=== PATIENT | female | born 1990 | race Caucasian/White ===

== ENCOUNTER 2017-07-24 10:28 | Emergency (ER) | payer SELFPAY ==
[2017-07-24 10:47] VITALS: O2SAT 97
--- NOTE | 2017-07-24 10:53 | ED.PDOC ---
History of Present Illness - General Chief Complaint: Skin/Abrasion/Tear Stated Complaint: skin abscess Time Seen by Provider: 07/24/17 10:39 Source: patient Exam Limitations: no limitations - History of Present Illness Initial Comments: The patient is a 27-year-old female presenting to the emergency room secondary to recurrent bilateral axillary folliculitis with persistent drainage from the left axilla. She was placed on Bactrim approximately 3 weeks ago but has continued to have drainage from theleft axilla. no fevers. She is not on control. Timing/Duration: unsure Severity: mild Improving Factors: nothing Worsening Factors: nothing Associated Symptoms: denies symptoms Allergies/Adverse Reactions: Allergies Amoxicillin Allergy (Severe, Verified 07/24/17 10:48) Hives Burning skin, itching Iodine Allergy (Verified 07/24/17 10:48) Rash iv contrast Adverse Reaction (Severe, Uncoded 07/24/17 10:48) Home Medications: Ambulatory Orders Cephalexin [Keflex] 500 mg PO TID #20 cap 01/21/16 Potassium Chloride [K-Tab] 10 meq PO DAILY #5 tab 01/21/16 Promethazine Tab [Phenergan Tablet] 25 mg PO Q4HR PRN #10 tab 01/21/16 Clindamycin HCl 300 mg PO Q8H #60 cap 07/24/17 Review of Systems - Review of Systems Constitutional: States: no symptoms reported EENTM: States: no symptoms reported Respiratory: States: no symptoms reported Cardiology: States: no symptoms reported Gastrointestinal/Abdominal: States: no symptoms reported Genitourinary: States: no symptoms reported Musculoskeletal: States: no symptoms reported Skin: States: see HPI Neurological: States: no symptoms reported Past Medical History (General) - Patient Medical History Hx Seizures: No Hx Stroke: No Hx Dementia: No Hx Asthma: No Hx of COPD: No Hx Cardiac Disorders: No Hx Congestive Heart Failure: No Hx Pacemaker: No Hx Hypertension: No Hx Thyroid Disease: No Hx Diabetes: No Hx Gastroesophageal Reflux: No Hx Renal Disease: Yes - frequent kidney infections Hx Cancer: No Hx of HIV: No Hx Hepatitis C: No Hx MRSA: No Surgical History: no surgical history - Vaccination History Hx Tetanus, Diphtheria Vaccination: No Hx Influenza Vaccination: No Hx Pneumococcal Vaccination: No - Social History Hx Tobacco Use: Yes Hx Chewing Tobacco Use: No Hx Alcohol Use: No Hx Substance Use: No Hx Substance Use Treatment: No Hx Depression: Yes Hx Physical Abuse: No Hx Emotional Abuse: No Hx Suspected Abuse: No - Female History Patient is a Female of Child Bearing Age (10 -59 yrs old): Yes Hx Last Menstrual Period: 10/26/15 Patient : No Expected Date of Delivery:: 12/04/12 Family Medical History - Family History Mother Family History: No Known Living Status: Still Living Physical Exam - Physical Exam General Appearance: Alert, Comfortable, No apparent distress Eye Exam: bilateral normal Ears, Nose, Throat: hearing grossly normal Neck: non-tender, full range of motion, supple Respiratory: no respiratory distress, no accessory muscle use Cardiovascular/Chest: normal peripheral pulses, no edema Peripheral Pulses: radial,right: 2+, radial,left: 2+ Rectal Exam: deferred Back Exam: normal inspection Extremity: normal range of motion, no pedal edema, normal capillary refill, other - see history of present illness Neurologic: alert, normal mood/affect, oriented x 3 Skin Exam: normal color - see history of present illness for the axilla. No obvious abscess. There is drainage of a mild yellow fluid from the left axilla. Minimal erythema however. Comments: Vital Signs - 8 hr 07/24/17 10:38 Temperature 98.9 F Pulse Rate [ 100 H pulse ox] Respiratory 20 Rate Blood Pressure 150/95 [Right Arm] O2 Sat by Pulse 97 Oximetry Progress - Progress Progress: 07/24/17 10:53 the patient is a 27-year-old female presenting with recurrence of bilateral axillary folliculitis or hiradenitis. The patient will be changed to clindamycin empirically as a trial. Drainage from the left axillary tract has been cultured and will need follow-up in approximately one week. It is possible the patient may have simply developed a chronic persistent left axillary drainage tract that may yet require surgical excision if antibiotics fail. This has been explained to her. No evidence of sepsis or gross abscess formation at this time. She can take the clindamycin with food. Follow-up with primary care doctor in 1 week for culture results. ER warnings were given. Departure - Departure Clinical Impression: Hidradenitis axillaris Disposition: Discharge to Home or Self Care Condition: Fair Departure Forms: ED Discharge - Pt. Copy, Patient Portal Self Enrollment Instructions: DI for Wound Infection Diet: regular diet Activity: increase activity as tolerated Referrals: Cameron Hahn MD [Primary Care Provider] - 1-2 Weeks Prescriptions: Clindamycin HCl 300 mg PO Q8H #60 cap Home Medications: Ambulatory Orders Cephalexin [Keflex] 500 mg PO TID #20 cap 01/21/16 Potassium Chloride [K-Tab] 10 meq PO DAILY #5 tab 01/21/16 Promethazine Tab [Phenergan Tablet] 25 mg PO Q4HR PRN #10 tab 01/21/16 Clindamycin HCl 300 mg PO Q8H #60 cap 07/24/17 Additional Instructions: the patient is a 27-year-old female presenting with recurrence of bilateral axillary folliculitis or hiradenitis. The patient will be changed to clindamycin empirically as a trial. Drainage from the left axillary tract has been cultured and will need follow-up in approximately one week. It is possible the patient may have simply developed a chronic persistent left axillary drainage tract that may yet require surgical excision if antibiotics fail. This has been explained to her. No evidence of sepsis or gross abscess formation at this time. She can take the clindamycin with food. Follow-up with primary care doctor in 1 week for culture results. ER warnings were given.
[2017-07-24 12:13] VITALS: BP 105/69; TEMP 97.2
== END 2017-07-24 12:00 | disposition home or self-care (01) ==
LOC: ER 10:28
DX: L73.2 Hidradenitis suppurativa (principal); Z87.891 Personal history of nicotine dependence; Z88.3 Allergy status to other anti-infective agents; Z88.8 Allergy status to other drugs, medicaments and biological substances; Z91.041 Radiographic dye allergy status

== ENCOUNTER 2017-12-09 23:49 | Emergency (ER) | payer SELFPAY ==
[2017-12-10 00:11] VITALS: BP 126/84; TEMP 99.4; O2SAT 96
--- NOTE | 2017-12-10 00:28 | ED.PDOC ---
History of Present Illness - General Chief Complaint: GI Problem Stated Complaint: possible pinworm infestation Time Seen by Provider: 12/10/17 00:24 Source: patient Exam Limitations: no limitations - History of Present Illness Initial Comments: he patient is a 27-year-old mother of a 5-year-old male that has a current pinworm infection. The mother is being seen for treatment as well to prevent any reinfection issues. She is not symptomatic. It is unknown if she is actually infected. Timing/Duration: unsure Improving Factors: nothing Worsening Factors: nothing Associated Symptoms: denies symptoms Allergies/Adverse Reactions: Allergies Amoxicillin Allergy (Severe, Verified 07/24/17 10:48) Hives Burning skin, itching Iodine Allergy (Verified 07/24/17 10:48) Rash iv contrast Adverse Reaction (Severe, Uncoded 07/24/17 10:48) Home Medications: Ambulatory Orders Cephalexin [Keflex] 500 mg PO TID #20 cap 01/21/16 Potassium Chloride [K-Tab] 10 meq PO DAILY #5 tab 01/21/16 Promethazine Tab [Phenergan Tablet] 25 mg PO Q4HR PRN #10 tab 01/21/16 Clindamycin HCl 300 mg PO Q8H #60 cap 07/24/17 Review of Systems - Review of Systems Constitutional: States: no symptoms reported EENTM: States: no symptoms reported Respiratory: States: no symptoms reported Cardiology: States: no symptoms reported Gastrointestinal/Abdominal: States: no symptoms reported Genitourinary: States: no symptoms reported Musculoskeletal: States: no symptoms reported Skin: States: no symptoms reported Neurological: States: no symptoms reported Endocrine: States: no symptoms reported All other Systems: No Change from Baseline Past Medical History (General) - Patient Medical History Hx Seizures: No Hx Stroke: No Hx Dementia: No Hx Asthma: No Hx of COPD: No Hx Cardiac Disorders: No Hx Congestive Heart Failure: No Hx Pacemaker: No Hx Hypertension: No Hx Thyroid Disease: Yes Hx Diabetes: No Hx Gastroesophageal Reflux: No Hx Renal Disease: Yes - frequent kidney infections Hx Cancer: No Hx of HIV: No Hx Hepatitis C: No Hx MRSA: No Surgical History: no surgical history - Vaccination History Hx Tetanus, Diphtheria Vaccination: No Hx Influenza Vaccination: No Hx Pneumococcal Vaccination: No Immunizations Up to Date: No - Social History Hx Tobacco Use: Yes Hx Chewing Tobacco Use: No Hx Alcohol Use: No Hx Substance Use: No Hx Substance Use Treatment: No Hx Depression: Yes Hx Physical Abuse: No Hx Emotional Abuse: No Hx Suspected Abuse: No - Female History Patient is a Female of Child Bearing Age (10 -59 yrs old): Yes Hx Last Menstrual Period: 10/26/15 Patient : No Expected Date of Delivery:: 12/04/12 Family Medical History - Family History Mother Family History: No Known Living Status: Still Living Physical Exam - Physical Exam General Appearance: Alert, Comfortable, No apparent distress Eye Exam: bilateral normal Ears, Nose, Throat: hearing grossly normal Neck: full range of motion Respiratory: no respiratory distress, no accessory muscle use Cardiovascular/Chest: no edema Gastrointestinal/Abdominal: other - ildly obese Rectal Exam: deferred Extremity: normal capillary refill Neurologic: jr. systems administrator II-XII nml as tested, alert, normal mood/affect, oriented x 3 Skin Exam: normal color Comments: Vital Signs - 24 hr 12/10/17 00:01 Temperature 99.4 F Pulse Rate [ 104 H left] Respiratory 18 Rate Blood Pressure 126/84 [left] O2 Sat by Pulse 96 Oximetry Progress - Progress Progress: 12/10/17 00:26 the patient is the mother of a 5-year-old that has a current pinworm infection. She is being treated as a household contact. She will be given a prescription for 1 dose of albendazole to be taken tomorrow after she gets the prescription filled and another dose in 2 weeks. Linens need to be washed in high heat. Handwashing needs to be maintained. Other household contacts need to contact their primary care doctor for empiric treatment. ER warnings were given. Departure - Departure Clinical Impression: Family history of pinworm infection Disposition: Discharge to Home or Self Care Condition: Fair Departure Forms: ED Discharge - Pt. Copy, Patient Portal Self Enrollment Instructions: DI for Pinworm Diet: regular diet Activity: increase activity as tolerated Referrals: Cameron Hahn MD [Primary Care Provider] - 1-2 Weeks Home Medications: Ambulatory Orders Cephalexin [Keflex] 500 mg PO TID #20 cap 01/21/16 Potassium Chloride [K-Tab] 10 meq PO DAILY #5 tab 01/21/16 Promethazine Tab [Phenergan Tablet] 25 mg PO Q4HR PRN #10 tab 01/21/16 Clindamycin HCl 300 mg PO Q8H #60 cap 07/24/17 Additional Instructions: the patient is the mother of a 5-year-old that has a current pinworm infection. She is being treated as a household contact. She will be given a prescription for 1 dose of albendazole to be taken tomorrow after she gets the prescription filled and another dose in 2 weeks. Linens need to be washed in high heat. Handwashing needs to be maintained. Other household contacts need to contact their primary care doctor for empiric treatment. ER warnings were given.
== END 2017-12-10 00:36 | disposition home or self-care (01) ==
LOC: ER 23:49
DX: Z20.7 Contact with and (suspected) exposure to pediculosis, acariasis and other infestations (principal)

== ENCOUNTER 2018-03-08 22:16 | Emergency (ER) | payer SELFPAY ==
--- NOTE | 2018-03-08 22:49 | ED.PDOC ---
History of Present Illness - General Chief Complaint: Upper Extremity Injury Stated Complaint: shoulder pain Time Seen by Provider: 03/08/18 22:42 Source: patient Exam Limitations: no limitations Additional Information: WAS RIDING WATERCRAFT WHEN SHE FELL OFF THE BACK HOLDING ON. C/O PAIN TO R SHOULDER. - History of Present Illness Occurred: other - 2 DAYS AGO. Pain - Upper Extremity: moderate: Shoulder, right Improving Factors: nothing Worsening Factors: movement Allergies/Adverse Reactions: Allergies Amoxicillin Allergy (Severe, Verified 07/24/17 10:48) Hives Burning skin, itching Iodine Allergy (Verified 07/24/17 10:48) Rash iv contrast Adverse Reaction (Severe, Uncoded 07/24/17 10:48) Home Medications: Ambulatory Orders Cephalexin [Keflex] 500 mg PO TID #20 cap 01/21/16 Potassium Chloride [K-Tab] 10 meq PO DAILY #5 tab 01/21/16 Promethazine Tab [Phenergan Tablet] 25 mg PO Q4HR PRN #10 tab 01/21/16 Clindamycin HCl 300 mg PO Q8H #60 cap 07/24/17 Review of Systems - Review of Systems Constitutional: Denies: chills, fever Respiratory: Denies: cough, short of breath Cardiology: Denies: chest pain, palpitations Musculoskeletal: States: joint pain. Denies: back pain, joint swelling, neck pain Skin: States: no symptoms reported Neurological: Denies: numbness, weakness Endocrine: States: no symptoms reported Hematologic/Lymphatic: States: no symptoms reported Past Medical History (General) - Patient Medical History Hx Seizures: No Hx Stroke: No Hx Dementia: No Hx Asthma: No Hx of COPD: No Hx Cardiac Disorders: No Hx Congestive Heart Failure: No Hx Pacemaker: No Hx Hypertension: No Hx Thyroid Disease: Yes Hx Diabetes: No Hx Gastroesophageal Reflux: No Hx Renal Disease: Yes - frequent kidney infections Hx Cancer: No Hx of HIV: No Hx Hepatitis C: No Hx MRSA: No Surgical History: no surgical history - Vaccination History Hx Tetanus, Diphtheria Vaccination: Yes Hx Influenza Vaccination: No Hx Pneumococcal Vaccination: No - Social History Hx Tobacco Use: Yes Hx Chewing Tobacco Use: No Hx Alcohol Use: No Hx Substance Use: No Hx Substance Use Treatment: No Hx Depression: Yes Hx Physical Abuse: No Hx Emotional Abuse: No Hx Suspected Abuse: No - Female History Patient is a Female of Child Bearing Age (10 -59 yrs old): Yes Hx Last Menstrual Period: 10/26/15 Patient : No Expected Date of Delivery:: 12/04/12 Family Medical History - Family History Mother Family History: No Known Living Status: Still Living Physical Exam - Physical Exam General Appearance: Alert, No apparent distress Eyes, Ears, Nose, Throat Exam: PERRL/EOMI, normal ENT inspection Neck: non-tender, full range of motion, other - NO SPINAL TTP Back Exam: normal inspection, no vertebral tenderness Shoulder Exam: normal inspection, limited ROM, pain - PALPATION OF BURSA AND POST ASPECT OVER SCAPULA, NO CREPITUS, NVI, NO BONY ABN/DEF. Elbow/Forearm Exam: normal inspection, non-tender Wrist Exam: normal inspection, non-tender Hand Exam: normal inspection, non-tender DTR: 2+: Biceps, left, Biceps, right, Triceps, left, Triceps, right Neuro/Tendon: normal sensation, normal motor functions Mental Status: alert, oriented x 3 Skin Exam: normal color, warm/dry Progress - EKG/XRAY/CT XRAY: SHOULDER, DONN Departure - Departure Clinical Impression: Contusion of right shoulder Qualifiers: Encounter type: initial encounter Qualified Code(s): S40.011A - Contusion of right shoulder, initial encounter Time of Disposition: 23:55 Disposition: Discharge to Home or Self Care Condition: Good Departure Forms: ED Discharge - Pt. Copy, Patient Portal Self Enrollment Instructions: Contusion Referrals: Cameron Hahn MD [Primary Care Provider] - 1-2 Weeks Home Medications: Ambulatory Orders Cephalexin [Keflex] 500 mg PO TID #20 cap 01/21/16 Potassium Chloride [K-Tab] 10 meq PO DAILY #5 tab 01/21/16 Promethazine Tab [Phenergan Tablet] 25 mg PO Q4HR PRN #10 tab 01/21/16 Clindamycin HCl 300 mg PO Q8H #60 cap 07/24/17
--- NOTE | 2018-03-08 23:00 | RAD ---
EXAM DESCRIPTION: Shoulder,Right 2 or More Views CLINICAL HISTORY: injured shoulder on se[place]oo on monday, still pain COMPARISON: None FINDINGS: 2 view(s) submitted. No fracture or dislocation is identified. Bone marrow attenuation is unremarkable. No radiopaque foreign body is identified. IMPRESSION: No acute fracture or dislocation. Electronically signed by: Everardo Chandra 03/08/2018 10:59 PM CDT
[2018-03-09 00:12] VITALS: BP 117/77; TEMP 99.1; O2SAT 99
== END 2018-03-08 23:59 | disposition home or self-care (01) ==
LOC: ER 22:16
DX: S40.011A Contusion of right shoulder, initial encounter (principal); E07.9 Disorder of thyroid, unspecified; Z87.891 Personal history of nicotine dependence; V91.83XA Other injury due to other accident to other powered watercraft, initial encounter; Y93.19 Activity, other involving water and watercraft

== ENCOUNTER 2019-04-23 12:15 | Emergency (ER) | payer SELFPAY ==
[2019-04-23] MEDS ORDERED: ONDANSETRON INJ 4 MG/2 ML VIAL IV ONE (13:08)
[2019-04-23] MEDS ORDERED: SODIUM CHLORIDE 0.9% 1000ML 1,000 ML IVS ONE ×2 (13:08→17:07)
[2019-04-23] MEDS ORDERED: KETOROLAC TROMETHAMINE INJ 30 MG/ML VIAL IV ONE (13:08)
[2019-04-23] MEDS ORDERED: HYOSCYAMINE SULFATE 0.5 MG/ML VIAL IV ONE (13:09)
--- NOTE | 2019-04-23 13:44 | ED.PDOC ---
History of Present Illness - General Information Source: patient Exam Limitations: no limitations - History of Present Illness Initial Comments: PT PRESENTS TO THE ED WITH COMPLAINT OF NAUSEA, VOMITING, DIARRHEA, AND INTERMITTENT CRAMPY ABDOMINAL PAIN THAT BEGAN AROUND 3AM THIS MORNING. PT REPORTS PAIN NOW RADIATES TO BILATERAL FLANK REGION. PT BELIEVES THAT SHE HAS FOOD POISONING FROM EATING OUT YESTERDAY EVENING. PT ALSO REPORTS COLD CHILLS. Abdominal Pain Onset Location: generalized abdomen Pain Radiation: back Quality: cramping, intermittent Timing/Duration: 4-6 hours Improving Factors: nothing Worsening Factors: nothing Associated Symptoms: diarrhea, fever/chills, nausea/vomiting <Brandon Washington H - Last Filed: 04/23/19 18:18> <Timi Miles - Last Filed: 04/23/19 21:01> - General Chief Complaint: GI Problem Stated Complaint: n/v/d,abd pain Time Seen by Provider: 04/23/19 12:57 Review of Systems - Review of Systems Constitutional: States: chills. Denies: fever EENTM: Denies: nose congestion, throat pain Respiratory: Denies: cough, short of breath Cardiology: Denies: chest pain, palpitations Gastrointestinal/Abdominal: States: see HPI, abdominal pain, diarrhea, nausea, vomiting Genitourinary: Denies: dysuria, frequency Musculoskeletal: States: back pain. Denies: joint pain, joint swelling Skin: Denies: dryness, lesions Neurological: Denies: headache, numbness <Brandon Washington H - Last Filed: 04/23/19 18:18> Past Medical History (General) - Patient Medical History Hx Seizures: No Hx Stroke: No Hx Dementia: No Hx Asthma: No Hx of COPD: No Hx Cardiac Disorders: No Hx Congestive Heart Failure: No Hx Pacemaker: No Hx Hypertension: No Hx Thyroid Disease: Yes Hx Diabetes: No Hx Gastroesophageal Reflux: No Hx Renal Disease: Yes - frequent kidney infections Hx Cancer: No Hx of HIV: No Hx Hepatitis C: No Hx MRSA: No Surgical History: no surgical history - Vaccination History Hx Tetanus, Diphtheria Vaccination: Yes Hx Influenza Vaccination: No Hx Pneumococcal Vaccination: No - Social History Hx Tobacco Use: Yes Hx Chewing Tobacco Use: No Hx Alcohol Use: No Hx Substance Use: No Hx Substance Use Treatment: No Hx Depression: Yes Hx Physical Abuse: No Hx Emotional Abuse: No Hx Suspected Abuse: No - Female History Patient is a Female of Child Bearing Age (10 -59 yrs old): Yes - March 2019 Hx Last Menstrual Period: 10/26/15 Patient : No Expected Date of Delivery:: 12/04/12 <Brandon Washington - Last Filed: 04/23/19 18:18> Family Medical History - Family History Mother Family History: No Known Living Status: Still Living <Brandon Washington - Last Filed: 04/23/19 18:18> Physical Exam - Physical Exam General Appearance: Alert, Obese, Well Developed, Well Groomed, Well Hydrated, Other - APPEARS UNCOMFORTABLE Eyes, Ears, Nose, Throat Exam: normal ENT inspection Neck: normal inspection Respiratory: lungs clear, normal breath sounds, no respiratory distress Cardiovascular/Chest: regular rate, rhythm, no murmur Gastrointestinal/Abdominal: soft, other - MILD DIFFUSE Back Exam: normal inspection, no CVA tenderness Extremity: normal inspection Neurologic: alert, normal mood/affect, oriented x 3 Skin Exam: normal color, warm/dry <Brandon Washington - Last Filed: 04/23/19 18:18> Progress - Progress Progress: 04/23/19 17:00 PT UNABLE TO TOLERATE PO AND CONTINUES TO FEEL NAUSEATED. LABS AND DIAGNOSTIC STUDIES DISCUSSED. 04/23/19 18:19 PT FEELING SOMEWHAT BETTER. STILL COMPLAINS OF NAUSEA, NO FURTHER EPISODES OF VOMITING AND REPORTS BACK PAIN HAS RESOLVED. 2ND LITER INFUSING. WILL ATTEMPT PO FLUID CHALLENGE AGAIN. - Results/Orders Results/Orders: Laboratory Tests 04/23/19 04/23/19 04/23/19 13:20 13:20 15:35 WBC 11.6 H RBC 5.06 Hgb 16.1 H Hct 47.6 H MCV 94.0 MCH 31.7 H MCHC 33.8 RDW 13.1 Plt Count 193 MPV 9.0 Absolute Neuts (auto) 10.50 H Absolute Lymphs (auto) 0.70 L Absolute Monos (auto) 0.30 Absolute Eos (auto) 0.10 Absolute Basos (auto) 0.00 Neutrophils % 90.5 H Lymphocytes % 5.8 L Monocytes % 2.8 Eosinophils % 0.6 L Basophils % 0.3 Sodium 135 Potassium 3.7 Chloride 106 Carbon Dioxide 19 L Anion Gap 13.7 BUN 12 Creatinine 0.52 L BUN/Creatinine Ratio 23.1 H Random Glucose 90 Serum Osmolality 269.4 L Calcium 9.1 Total Bilirubin 0.8 Direct Bilirubin < 0.1 Indirect Bilirubin 0.7 AST 22 ALT 29 Alkaline Phosphatase 68 Serum Total Protein 7.9 Albumin 4.2 Lipase 24 Urine Color Yellow Urine Appearance Sl cloudy Urine pH 5.5 Ur Specific [place] >= 1.030 Urine Protein Trace Urine Glucose (UA) Negative Urine Ketones Negative Urine Blood Negative Urine Nitrite Negative Urine Bilirubin Negative Urine Urobilinogen 0.2 Ur Leukocyte Esterase Negative Urine RBC 0-1 Urine WBC 0-1 Ur Epithelial Cells 5-10 Urine Bacteria 2+ H Urine Mucus Moderate Stool Occult Blood 04/23/19 15:50 WBC RBC Hgb Hct MCV MCH MCHC RDW Plt Count MPV Absolute Neuts (auto) Absolute Lymphs (auto) Absolute Monos (auto) Absolute Eos (auto) Absolute Basos (auto) Neutrophils % Lymphocytes % Monocytes % Eosinophils % Basophils % Sodium Potassium Chloride Carbon Dioxide Anion Gap BUN Creatinine BUN/Creatinine Ratio Random Glucose Serum Osmolality Calcium Total Bilirubin Direct Bilirubin Indirect Bilirubin AST ALT Alkaline Phosphatase Serum Total Protein Albumin Lipase Urine Color Urine Appearance Urine pH Ur Specific [place] Urine Protein Urine Glucose (UA) Urine Ketones Urine Blood Urine Nitrite Urine Bilirubin Urine Urobilinogen Ur Leukocyte Esterase Urine RBC Urine WBC Ur Epithelial Cells Urine Bacteria Urine Mucus Stool Occult Blood Positive <Brandon Washington H - Last Filed: 04/23/19 18:18> - Results/Orders Results/Orders: Discuss all test result with patient;feeling better no further N/V/D <Timi Miles R - Last Filed: 04/23/19 21:01> Departure <Brandon Washington H - Last Filed: 04/23/19 18:18> - Departure Time of Disposition: 20:55 Diet: bland diet, other - AVOID GREASY,SPICY FOODS UNTIL BETTER <Timi Miles R - Last Filed: 04/23/19 21:01> - Departure Clinical Impression: Acute gastroenteritis Abdominal pain Qualifiers: Abdominal location: generalized Qualified Code(s): R10.84 - Generalized abdominal pain Disposition: Discharge to Home or Self Care Condition: Good Departure Forms: ED Discharge - Pt. Copy, Patient Portal Self Enrollment Instructions: Diarrhea in Adolescents and Adults, Nausea and Vomiting, Adult (DC) Referrals: Caemron Hahn MD [Referring] - 1-2 Weeks Prescriptions: Ciprofloxacin [Cipro] 500 mg PO BID 7 Days #14 tab Home Medications: Ambulatory Orders Ciprofloxacin [Cipro] 500 mg PO BID 7 Days #14 tab 04/23/19 Additional Instructions: Return to Emergency room as needed;follow up with primary Md 25 April 2019 for recheck as needed
[2019-04-23] MEDS ORDERED: HYDROcodone 10MG/APAP 325MG 1 EA TAB PO ONE (15:43)
[2019-04-23] MEDS ORDERED: PROMETHAZINE HCL INJ 25 MG in SODIUM CHLORIDE 0.9% 50ML 50 ML IVPB ONE (17:06)
[2019-04-23] MEDS: SODIUM CHLORIDE 0.9% (FLUSH) 10 ML SYG IV PRN ×2 (17:21→21:07)
[2019-04-23] MEDS ORDERED: PROMETHAZINE HCL INJ 25 MG/ML VIAL ONE (17:34)
[2019-04-23] MEDS ORDERED: SODIUM CHLORIDE 0.9% 50ML 50 ML ONE (17:34)
[2019-04-23 20:09] VITALS: O2SAT 97
[2019-04-23] MEDS ORDERED: ACETAMINOPHEN W/COD #3 TAB (ER Disp) PO ONE (20:51)
[2019-04-23] MEDS ORDERED: PROMETHAZINE TAB (ER DISP) 25 MG TAB PO ONE (20:51)
[2019-04-23] MEDS ORDERED: cefTRIAXone SODIUM 1 GM in SODIUM CHL 0.9% 50ML MIN-BAG+ 50 ML IVPB ONE (20:51)
[2019-04-23] MEDS ORDERED: cefTRIAXone SODIUM 1 GM VIAL ONE (21:05)
[2019-04-23] MEDS ORDERED: SODIUM CHL 0.9% 50ML MIN-BAG+ 50 ML IVPB ONE (21:06)
[2019-04-23 21:38] VITALS: BP 116/66; TEMP 97.4
== END 2019-04-23 21:34 | disposition home or self-care (01) ==
LOC: ER 12:15
DX: K52.9 Noninfective gastroenteritis and colitis, unspecified (principal); F32.9 Major depressive disorder, single episode, unspecified; E07.9 Disorder of thyroid, unspecified; Z87.891 Personal history of nicotine dependence; Z87.440 Personal history of urinary (tract) infections
CPT/HCPCS: 36415; 80048; 80076; 81001; 82270; 83690; 85025; 87015; 87045; 87046; 87272; 87324; 87329; 87449; A4216; J0696; J1885; J2405; J2550; J7030; J7050; Q0169

== ENCOUNTER → 2020-09-13 | Outpatient (CLI) | payer MEDICAID | LOC: LAB.O 12:05 | PROVIDERS: ATTEND Nurse Practitioner Family | DX: N93.9 Abnormal uterine and vaginal bleeding, unspecified (principal) ==